=== PATIENT | male | born 1990 | race Caucasian/White ===

== ENCOUNTER 2021-11-17 18:10 | Emergency (ER) | payer OTHER ==
[2021-11-17 20:27] LABS: BASOPHIL 0.3 % (0-2); EOSINOPHIL 0.2 % (0-5); HCT 43.9 % (42.0-52.0); HGB 14.7 g/dl (13.2-18.0); MCH 30.6 pg (25.0-31.0); MCHC 33.5 g/dL (32.0-36.0); MCV 91.5 fL (78.0-100.0); MONOCYTE 5.9 % (0-12); MPV 8.9 fL (6.0-9.5); NEUTROPHIL 86.3 % (41-80); NRBC 0; PLT 201 K/uL (150-400); RDW 12.9 % (11.5-14.0)
[2021-11-17 20:42] LABS: AMPHETAMINES NEGATIVE (NEGATIVE); BARBITURATES NEGATIVE (NEGATIVE); ECSTASY (MDMA) NEGATIVE (NEGATIVE); MARIJUANA (THC) NEGATIVE (NEGATIVE); METHADONE NEGATIVE (NEGATIVE); OPIATES NEGATIVE (NEGATIVE); OXYCODONE NEGATIVE (NEGATIVE)
[2021-11-17 20:44] LABS: ALBUMIN 4.2 g/dL (3.4-5.0); ALKALINE PHOSHATASE 45 U/L (46-116); ALT 20 U/L (16-63); AST 21 U/L (15-37); BILIRUBIN - TOTAL 0.9 mg/dL (0.2-1.0); BUN 13 mg/dL (7-18); BUN/CREAT RATIO (CALC) 20.6 RATIO; CHLORIDE 103 mmol/L (98-107); CO2 (BICARBONATE) 25 mmol/L (21-32); CREATININE 0.63 mg/dL (0.67-1.17); GLOBULIN (CALCULATION) 2.9 g/dL; GLUCOSE 236 mg/dL (74-106); INR 1.14 (0.9-1.2); POTASSIUM 4.1 mmol/L (3.5-5.1); PROTHROMBIN TIME 14.3 SECONDS (11.9-13.9); PTT 28.6 SECONDS (24.9-34.6); TOTAL PROTEIN 7.1 g/dL (6.4-8.2)
== END 2021-11-17 23:35 | disposition home or self-care (01) ==
LOC: EDBD 18:10 → FER 18:10
PROVIDERS: Internal Medicine
DX: E10.649 Type 1 diabetes mellitus with hypoglycemia without coma (principal); G40.909 Epilepsy, unspecified, not intractable, without status epilepticus; F17.290 Nicotine dependence, other tobacco product, uncomplicated; Z79.4 Long term (current) use of insulin
CPT/HCPCS: 36415; 70450; 80053; 80305; 83605; 85025; 85610; 85730; G0480; J1953